=== PATIENT | female | born 1940 | race Caucasian/White ===

== ENCOUNTER 2017-07-01 12:28 | Inpatient (IN) | payer OTHER ==
[~2017-07-01] VITALS: Ht 165.1 cm; Wt 114.9 kg
[~2017-07-01 12:28] MED LIST: BENAZEPRIL HCL/1 TA3 PO; CLINDAMYCIN300 M1 PO; COL250 PO; DIGITEK0.125 MG PO; EXTENDED PHENY100 MG PO; HEP-FORTE1 CAP PO; LAC PO; LASIX20 MG PO; LEV500 PO; LEVOTHYROXIN0.075 M2 PO; MICRO-K10 MEQ PO; ORAZINC 220220 MG PO; PRADAXA150 M1 PO; PRE20 PO; TRENTAL400 MG PO; TYLENOL PO; VITAMIN C500 M4 PO; ZOCOR20 MG PO
[2017-07-01 13:25] LABS: BASOPHIL % 0.6 % (0-2)
[2017-07-01 13:28] LABS: PLATELET COUNT 74 x10^3mcL (130-400); RED CELL DISTRIBUTION WIDTH 15.8 % (11.5-14.5)
[2017-07-01 13:33] LABS: CALCIUM 8.9 mg/dL (8.5-10.1); CARBON DIOXIDE 31.2 mmol/L (21-32); CHLORIDE SERUM 102 mmol/L (98-107); CREATININE SERUM 1.1 mg/dL (0.6-1.0); GLUCOSE SERUM 109 mg/dL (74-106); POTASSIUM SERUM 3.9 mmol/L (3.5-5.1); SODIUM SERUM 141 mmol/L (136-145)
[2017-07-01 13:37] LABS: ALKALINE PHOSPHATASE 87 U/L (46-116); ALT/SGPT 24 U/L (14-59); AST/SGOT 30 U/L (15-37); BILIRUBIN TOTAL 0.39 mg/dL (0.20-1.00); CHOLESTEROL 154 mg/dL (<200)
[2017-07-01 13:38] LABS: ALBUMIN 3.3 g/dL (3.4-5.0)
[2017-07-01 14:40] LABS: microscopic required? YES; urine erythrocyte TRACE (NEGATIVE)
[2017-07-01 14:55] LABS: AMPHETAMINE QUAL UR NONE DETECTED (NEG <=1000)
[2017-07-01] MEDS ORDERED: ELIQUIS5 MG PO (16:49)
[2017-07-01] MEDS ORDERED: CEPHALEXIN500 MG PO (16:49)
[2017-07-01] MEDS ORDERED: MAPAP325 MG PO (16:50)
[2017-07-01] MEDS ORDERED: MYCC TOP (16:52)
[2017-07-01 17:37] LABS: CHOLESTEROL/HDL RATIO 2.3; MAGNESIUM 1.9 mg/dL (1.8-2.4); PHOSPHOROUS 3.7 mg/dL (2.5-4.9)
[2017-07-01 17:43] LABS: T3 TOTAL 0.88 ng/mL
[2017-07-01 17:47] LABS: FREE T4 1.12 ng/dL (0.76-1.46); FREE THYROXINE INDEX 2.2 ug/dL (1.4-4.5); T4(THYROXINE) 6.4 ug/dL (4.7-13.3)
[2017-07-01 18:10] VITALS: BP 133/69
[2017-07-01 18:20] VITALS: BP 133/69
[2017-07-01 21:31] VITALS: BP 122/40
[2017-07-02 05:49] VITALS: BP 114/50
[2017-07-02 07:08] LABS: BASOPHIL % 0.5 % (0-2)
[2017-07-02 07:16] LABS: PLATELET COUNT 66 x10^3mcL (130-400); RED CELL DISTRIBUTION WIDTH 15.8 % (11.5-14.5)
[2017-07-02 07:17] LABS: CALCIUM 8.3 mg/dL (8.5-10.1); CARBON DIOXIDE 28.5 mmol/L (21-32); CHLORIDE SERUM 106 mmol/L (98-107); CREATININE SERUM 1.1 mg/dL (0.6-1.0); GLUCOSE SERUM 72 mg/dL (74-106); POTASSIUM SERUM 3.9 mmol/L (3.5-5.1); SODIUM SERUM 143 mmol/L (136-145)
[2017-07-02 10:10] VITALS: BP 118/58
[2017-07-02 13:04] VITALS: BP 103/40
[2017-07-02 17:12] VITALS: BP 120/43
[2017-07-02 21:28] VITALS: BP 115/52
[2017-07-03 06:20] VITALS: BP 117/48
[2017-07-03 09:36] VITALS: BP 117/48
[2017-07-03 09:53] VITALS: BP 113/56
== END 2017-07-03 11:15 | DRG 884 ==
LOC: ED 12:28 → DU 16:19
PROVIDERS: Emergency Medicine; ADMIT Family Medicine
DX: F03.90 Unspecified dementia, unspecified severity, without behavioral disturbance, psychotic disturbance, mood disturbance, and anxiety (principal); N17.0 Acute kidney failure with tubular necrosis; G93.40 Encephalopathy, unspecified; E87.2 Acidosis; Z68.41 Body mass index [BMI] 40.0-44.9, adult; I48.2 Chronic atrial fibrillation; K59.00 Constipation, unspecified; J44.9 Chronic obstructive pulmonary disease, unspecified; D69.6 Thrombocytopenia, unspecified; R73.03 Prediabetes; G40.909 Epilepsy, unspecified, not intractable, without status epilepticus; E03.9 Hypothyroidism, unspecified; E78.5 Hyperlipidemia, unspecified; Z87.891 Personal history of nicotine dependence; D72.829 Elevated white blood cell count, unspecified
CPT/HCPCS: 83880; 84439; G0480; J2543; J7030; Q0092